=== PATIENT | male | born 1950 ===

== ENCOUNTER → 2016-06-17 | Outpatient (CLI) | payer BC ==
[~2016-06-17] MED LIST: CODE118S2 PO; DEXT30SU4 PO; OSEL75CA PO
--- NOTE | 2016-06-18 08:54 | DI ---
Indication: ITS.REASON: M25.571 PAIN IN RIGHT ANKLE/JOINTS OF RT FOOT PROCEDURE: ANKLE RIGHT 3 VIEW: Encounter: Initial Comparison: None Findings: There is no acute fracture, dislocation or malalignment identified. Impression: No acute osseous abnormality. .
== END ==
LOC: IMA 16:43
PROVIDERS: ATTEND Family Medicine
DX: M25.571 Pain in right ankle and joints of right foot (principal)